=== PATIENT | female | born 1955 | race African-American/Black ===

== ENCOUNTER 2019-05-18 06:04 | Inpatient (IN) ==
[2019-05-18] MEDS ORDERED: ASPIRIN PO ONE (06:09)
[2019-05-18] MEDS ORDERED: MORPHINE IV ONE ×2 (06:09→09:29)
[2019-05-18] MEDS ORDERED: ASPIRIN ONE (06:13)
--- NOTE | 2019-05-18 06:13 | PROVIDER DOCUMENTATION ---
HPI-General Adult - General Chief Complaint: Chest Pain Stated Complaint: CP Time Seen by Provider: 05/18/19 06:08 Source: patient Allergies/Adverse Reactions: Patient Allergies Allergy/AdvReac Type Severity Reaction Status Date / Time No Known Allergies Allergy Verified 05/18/19 06:31 - History of Present Illness -Gen Adult Nature of Presenting Problems: Pt presents with cp, x 2 days, sharp, comes and goes, substernal, pt hasn't seen a doctor since "1984" pt denies f/c, huntley, cough, ap, n/v/d. Pt reports some associated sob, pt is lying in bed in no acute distress. Location of Pain/Injury: reports: chest Pain Radiation: reports: no radiation Quality of Pain: reports: sharp Severity: reports: moderate Onset/Duration: reports: 2 days ago Timing: reports: still present Context/Activities at Onset: reports: none Modifying Factors: improves with: nothing Associated Symptoms: reports: shortness of breath Similar Symptoms Previously?: No Recently seen or treated by another doctor?: No Review of Systems - Adult - REVIEW OF SYSTEMS - ADULT Constitutional: reports: no symptoms reported Eyes: reports: no symptoms reported Ears, Nose, Mouth & Throat: reports: no symptoms reported Cardiovascular: reports: see HPI Respiratory: reports: no symptoms reported Gastrointestinal: reports: no symptoms reported Genitourinary: reports: no symptoms reported Musculoskeletal: reports: no symptoms reported Integumentary: reports: no symptoms reported Neurological: reports: no symptoms reported Psychiatric: reports: no symptoms reported Endocrine: reports: no symptoms reported Hematologic/Lymphatic: reports: no symptoms reported Allergic/Immunologic: reports: no symptoms reported All Other Systems: Reviewed and Negative Past History - Adult - PAST MEDICAL HISTORY-ADULT Review of Records: reports: Old Records Reviewed, Nursing Assessment Review, Medications Reviewed, Social history reviewed & non-contributory. Major Childhood Illnesses: reports: denies history Cardiovascular: reports: denies history Respiratory: reports: denies history Gastrointestinal: reports: denies history Obstetrical/Gynecological: reports: denies history Genitourinary: reports: denies history Musculoskeletal: reports: denies history Neurological: reports: denies history Psychiatric: reports: denies history Endocrine/Immune: reports: denies history Other Conditions: reports: denies history Physical Exam-General - PHYSICAL EXAM-ADULT Initial Vital Signs Reviewed: Yes - CONSTITUTIONAL General Appearance: appears well - EYES Eyes: PERRL/EOMI - HEAD, EARS, NOSE, MOUTH & THROAT HENMT: normal ENT inspection - NECK Neck: normal inspection - RESPIRATORY Respiratory: lungs clear, no respiratory distress, no accessory muscle use - CARDIOVASCULAR Cardiovascular: regular rate, rhythm - GASTROINTESTINAL (ABDOMEN) Abdominal Exam: non tender, soft - LYMPHATIC Lymphatic: no adenopathy - MUSCULOSKELETAL Back Exam: normal inspection Extremity: normal range of motion - SKIN Integumentary: normal color - NEUROLOGIC Neurologic: grossly normal - PSYCHIATRIC Psych/Mental Status: normal mood/affect Progress - PLAN OF CARE/RESULTS Progress/Plan/Lab Results: Orders Category Date Time Status cxr [CHEST-1 VIEW] [RAD] Stat Exams 05/18/19 06:08 Ordered CBC WITH ELECTRONIC DIFF [HEME] Stat Lab 05/18/19 06:08 Uncollected COMPREHENSIVE METABOLIC PANEL [CHEM] Stat Lab 05/18/19 06:08 Uncollected PRO B-NATRIURETIC PEPTIDE Stat Lab 05/18/19 06:08 Uncollected PROTIME WITH INR [COAG] Stat Lab 05/18/19 06:08 Uncollected PTT [COAG] Stat Lab 05/18/19 06:08 Uncollected TROPONIN T Stat Lab 05/18/19 06:08 Uncollected Aspirin Med 05/18/19 06:09 Once 325 mg PO NOW ONE Morphine Med 05/18/19 06:09 Once 4 mg IV NOW ONE EKG [EKG] Stat Ther 05/18/19 06:05 Ordered Result Diagrams: 05/18/19 06:17 05/18/19 06:54 - REASSESSMENT Reassessment #1 Time Reassessed: 08:12 Status: unchanged (pt reports persistent CP and dyspnea since 10a yesterday. she believes she had "pneumonia" 3 weeks ago (didn't see MD). has had leg STS w/o pain. persistent tachypnea and tachycardia in ED. will obtain chest CTA) Reassessment #2 Time Reassessed: 12:18 Status: unchanged (pt continues w/ grunting respiration and tachypnea and modest tachycardia. dimer was elevated, however chest CTA reveals no emboli. Rad interprets study as c'megaly and pulm edema, no def PNA; 2 hr cardiac Enz and EKG show no changes from prior: will administer NtG paste and Lasix. will consult for admission.) - CONSULTS/PCP/HOSPITALIST Notification #1 *Consult/PCP/Hospitalist*: Connie Cheema) Time Discussed: 13:15 Consult Disposition: Admit Departure - Departure Date of Disposition Decision: 05/18/19 Time of Disposition Decision: 13:15 DIAGNOSIS: Chest pain, Hypertension, CHF (congestive heart failure) Disposition: ADMITTED INPATIENT 09 Certified Medical Emergency: Emergent Condition: Stable Referrals and Follow-Ups: None,PCP [Primary Care Provider] - - Critical Care Note This patient required my direct & personal management of CC.: No Attestation - Physician/ HANS Attestation The physician spent face to face time with patient:: Yes Advanced Practice Provider documentation review:: Supervising physician onsite and consulted in the evaluation and care of this patient. The physician did have a face to face encounter with the patient.
--- NOTE | 2019-05-18 06:38 | Diag Imaging Result Doc PS360 ---
EXAM: CHEST-1 VIEW HISTORY: chest pain TECHNIQUE: Chest single view COMPARISON: None. FINDINGS: Poor inspiratory effort. Atelectasis or small infiltrate in the left base. Heart is mildly prominent. No pulmonary edema. IMPRESSION: Left basilar atelectasis versus an infiltrate. Follow-up PA and lateral recommended. Electronically signed by Waylon Smith 05/18/2019 6:35 AM
[2019-05-18 06:57] LABS: WBC 10.08 X1000 (4.8-10.8)
[2019-05-18 06:58] LABS: BASO# 0.02 X1000 (0.0-0.2); BASO% 0.2 % (0.0-0.8); EOS# 0.28 X1000 (0.0-0.7); EOS% 2.8 % (0.0-10.0); HEMATOCRIT 41.3 % (37.0-47.0); HEMOGLOBIN 13.2 g/dL (12.0-16.0); IMM GRAN# 0.11 X1000 (0.0-0.04); IMM GRAN% 1.1 % (0.0-0.5); LYMPH# 2.41 X1000 (1.2-3.4); LYMPH% 23.9 % (20.5-51.1); MCH 26.5 PG (27-31); MCV 82.9 FL (81-99); MONO# 1.09 X1000 (0.11-0.59); MONO% 10.8 % (1.7-9.3); MPV 11.7 FL (7.4-10.4); NEUT# 6.17 X1000 (1.4-6.5); NEUT% 61.2 % (42.2-75.2); PLT 188 X1000 (130-400); RBC 4.98 XMIL (4.2-5.4); RDW 14.9 % (11.5-14.5)
[2019-05-18 07:13] LABS: INR 1.17; PROTIME 15.1 Seconds (11.0-16.0); PTT 26.5 Seconds (22.3-41.8)
[2019-05-18 07:25] LABS: AGAP 11; ALB/GLOB RATIO 1.3; ALBUMIN 3.6 g/dL (3.5-5.0); ALKALINE PHOSPHATASE 103 U/L (32-104); BUN 15 mg/dL (8-22); CALCIUM 8.7 mg/dL (8.8-10.2); CHLORIDE 102 mmol/L (98-107); COSMO 277; CREATININE 0.9 mg/dL (0.5-0.9); ESTIMATED GFR > 60; GLUCOSE 114 mg/dL (70-104); GOT 10 U/L (10-30); GPT 10 U/L (10-36); POTASSIUM 4.2 mmol/L (3.5-5.1); SODIUM 138 mmol/L (136-145); TCO2 25 mmol/L (25-35); TOTAL PROTEIN 6.4 g/dL (6.3-8.3)
--- NOTE | 2019-05-18 07:30 | EKG Report ---
Test Performed on : 05/18/2019 06:04:47 AM Test Reason : cp Blood Pressure : / mmHG Vent. Rate : 108 BPM Atrial Rate : 108 BPM P-R Int : 100 ms QRS Dur : 068 ms QT Int : 330 ms P-R-T Axes : 052 006 050 degrees QTc Int : 442 ms Sinus tachycardia. with short CT Possible Left atrial enlargement Left ventricular hypertrophy Nonspecific T wave abnormality Abnormal ECG No previous ECGs available Unconfirmed Result
--- NOTE | 2019-05-18 08:14 | EKG Report ---
Test Performed on : 05/18/2019 08:04:44 AM Test Reason : CP Blood Pressure : / mmHG Vent. Rate : 103 BPM Atrial Rate : 103 BPM P-R Int : 128 ms QRS Dur : 066 ms QT Int : 340 ms P-R-T Axes : 044 006 039 degrees QTc Int : 445 ms Sinus tachycardia. Possible Left atrial enlargement Left ventricular hypertrophy Nonspecific T wave abnormality Abnormal ECG When compared with ECG of 18-MAY-2019 06:04, (Unconfirmed) No significant change was found Unconfirmed Result
--- NOTE | 2019-05-18 10:13 | Diag Imaging Result Doc PS360 ---
EXAM: CT ANGIOGRM PULMONARY ARTERIES HISTORY: chest pain, tachypnea, tachycardia TECHNIQUE: CT chest with intravenous contrast. Pulmonary arterial protocol with MIP images. COMPARISON: None. FINDINGS: There is normal opacification of the pulmonary arteries and their branches. No thoracic aortic aneurysm or dissection. Heart is mildly enlarged. No pleural effusions. Moderate sized hiatal hernia. No enlarged lymph nodes. The vasculature is distended. There are increased interstitial markings in the lungs. No consolidation. IMPRESSION: 1.No pulmonary emboli 2.Cardiomegaly with pulmonary edema 3.Hiatal hernia 4.Small basilar infiltrates or atelectasis This exam was performed using automated exposure control, adjustment of mA or kV according to patient size, and/or use of iterative reconstruction technique. Electronically signed by Waylon Smith 05/18/2019 10:10 AM
[2019-05-18] MEDS ORDERED: NITROGLYCERIN TOP ONE (12:16)
[2019-05-18] MEDS ORDERED: LASIX IV ONE (12:17)
--- NOTE | 2019-05-18 12:17 | ED EKG INTERP ---
This chart was entered by Elizabeth Narayan Scribe, acting as scribe for Rolando Solis MD. EKG Interpretation - EKG Time of EKG reading by physician:: 06:04 EKG Read and Signed by:: Rolando Solis EKG Interpretation (*Must complete 3 of following elements*): Abnormal Rate: 108 (possible left atrial enlargement ) Rhythm: ST w/short MA [place]: normal QRS: LVH MA Interval: shortened ST Wave: non-specific ST changes (nonspecific t wave abnormality) - EKG # 2 Time of EKG reading by physician:: 08:04 (possible left atrial enlargement ) EKG Read and Signed by:: Rolando Solis EKG Interpretation (*Must complete 3 of following elements*): Abnormal Rate: 103 Rhythm: ST [place]: normal QRS: LVH MA Interval: normal ST Wave: non-specific ST changes (nonspecific t wave abnormality) Prior EKG Comparison: changes noted Attestation - Physician/ HANS Attestation Patient care was provided by Advanced Practice Provider:: No The physician spent face to face time with patient:: Yes Advanced Practice Provider documentation review:: Supervising physician onsite and consulted in the evaluation and care of this patient. The physician did have a face to face encounter with the patient. This chart was documented by the indicated scribe, (Elizabeth Narayan Scribe) and accurately reflects the services I performed and decisions made by me, Rolando Solis MD, as attested by the provider's signature.
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
[2019-05-18] MEDS ORDERED: TYLENOL PO PRN (14:21)
[2019-05-18] MEDS ORDERED: ZOFRAN IV PRN (14:21)
--- NOTE | 2019-05-18 16:47 | ECHO REPORT ---
ORDER DATE: 05/18/2019 MEASUREMENTS: Septal thickness 1.3 cm. Left ventricular internal diameter end-diastole 3.5 cm. Posterior wall thickness 1.3 cm. Left ventricular internal diameter end-systole 2.3 cm. Aortic root 2.6 cm. Left atrium 4.0 cm. SUMMARY: 1. Fair quality study. 2. Aortic valve is trileaflet and opens normally on 2-dimensional images. Peak gradient across the aortic valve is less than 10 mmHg. Mitral, tricuspid, and pulmonic valves are without evidence of structural abnormality with mild tricuspid regurgitation and mild pulmonic insufficiency. The estimated systolic PA pressure by Doppler is 45 mmHg, suggesting mild pulmonary hypertension. The aortic root is normal in size. 3. Normal left ventricular chamber size with mild concentric left hypertrophy demonstrated. Estimated left ventricular ejection fraction appears to be at least 65%. No regional wall motion abnormalities are evident. Doppler suggests grade 1 left ventricular diastolic dysfunction. The left atrium is borderline enlarged. The right atrium and right ventricle are normal in size with grossly preserved right ventricular systolic function. 4. No pericardial effusion. 5. Appearance of the inferior vena cava suggests normal central venous pressure. CONCLUSIONS: 1. Mild tricuspid regurgitation with mild pulmonary hypertension by Doppler. 2. Mild concentric left ventricular hypertrophy with estimated left ventricular ejection fraction at least 65%. 3. Grade 1 left ventricular diastolic dysfunction. 4. Borderline left atrial enlargement. cc: MD Connie Ramirez CRNP
[2019-05-18] MEDS: LOVENOX SUBQ SCH (18:16)
[2019-05-18] MEDS: MOTRIN PO SCH (20:47)
[2019-05-18] MEDS: LASIX IV SCH (20:47)
[2019-05-19] MEDS: MOTRIN PO SCH ×3 (03:00→13:11)
[2019-05-19 06:33] LABS: BASO# 0.01 X1000 (0.0-0.2); BASO% 0.1 % (0.0-0.8); EOS# 0.02 X1000 (0.0-0.7); EOS% 0.3 % (0.0-10.0); HEMOGLOBIN 10.4 g/dL (12.0-16.0); IMM GRAN# 0.04 X1000 (0.0-0.04); IMM GRAN% 0.6 % (0.0-0.5); LYMPH# 0.99 X1000 (1.2-3.4); LYMPH% 13.9 % (20.5-51.1); MCH 26.3 PG (27-31); MCHC 31.5 g/dL (33-37); MCV 83.3 FL (81-99); MONO# 1.06 X1000 (0.11-0.59); MONO% 14.9 % (1.7-9.3); MPV 11.6 FL (7.4-10.4); NEUT% 70.2 % (42.2-75.2); PLT 205 X1000 (130-400); RBC 3.96 XMIL (4.2-5.4); RDW 14.6 % (11.5-14.5); WBC 7.12 X1000 (4.8-10.8)
[2019-05-19 07:07] LABS: AGAP 13; BUN 19 mg/dL (8-22); CALCIUM 8.9 mg/dL (8.8-10.2); CHLORIDE 103 mmol/L (98-107); COSMO 290; CREATININE 1.1 mg/dL (0.5-0.9); ESTIMATED GFR > 60; GLUCOSE 108 mg/dL (70-104); MAGNESIUM 2.3 mg/dL (1.5-2.7); POTASSIUM 3.6 mmol/L (3.5-5.1); SODIUM 144 mmol/L (136-145); TCO2 28 mmol/L (25-35)
--- NOTE | 2019-05-19 08:37 | Diag Imaging Result Doc PS360 ---
EXAM: CHEST-2 VIEWS 05/19/2019 HISTORY: Pulmonary Edema TECHNIQUE: PA and lateral chest COMMENT: There is a hiatal hernia. There is cardiomegaly. The lungs are actually better expanded than on 05/18/2019. The lungs appear to be clear. There is a granuloma in the left costophrenic angle. IMPRESSION: No evidence of acute disease. Electronically signed by Roel Hernandez 05/19/2019 8:35 AM
[2019-05-19] MEDS: LASIX IV SCH (08:38)
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
[2019-05-19] MEDS: LOVENOX SUBQ SCH (13:44)
[2019-05-19] MEDS ORDERED: PNEUMOVAX 23 IM ONE (14:32)
[2019-05-19 15:00] VITALS: BP 146/86
--- NOTE | 2019-05-20 08:46 | Extremity Venous Study ---
PROCEDURE NAME: Venous U/S Bilateral Legs - 05/18/2019 PROCEDURE: Bilateral lower extremity venous duplex study. DATE OF STUDY: 05/18/2019. REFERRING PHYSICIAN: Mary. READING PHYSICIAN: Guille. SCREEN PRINT OPERATOR: Deepak. INDICATION: Leg swelling. FINDINGS: The deep and superficial veins of both lower extremities were imaged throughout their course. They are compressible, patent and without thrombus. INTERPRETATION: No DVT or SVT of either lower extremity. cc: MD Connie Tsai CRNP
== END 2019-05-19 14:53 | disposition home or self-care (01) | DRG 206 ==
LOC: 3N 06:04 → ED 06:04 → OBSVTOIN 14:02 → MERGE 14:02
PROVIDERS: ATTEND Emergency Medicine